=== PATIENT | male | born 1975 | race Caucasian/White ===

== ENCOUNTER 2021-11-28 09:05 | Outpatient (REF) | payer BC, SELFPAY ==
[2021-11-28 11:56] LABS: Binax Internal Control QC Valid; Binax Lot number: 9864; Binax Now Covid-19 Ag Negative (Negative)
== END 2021-11-28 09:06 | disposition home or self-care (01) ==
LOC: HO.LAB 09:05
PROVIDERS: Visit Provider Internal Medicine
DX: Z20.822 Contact with and (suspected) exposure to COVID-19 (principal)
CPT/HCPCS: 36415; C9803

== ENCOUNTER 2024-06-03 08:54 | Outpatient (AMB) | payer OTHER, SELFPAY ==
--- NOTE | 2024-06-03 08:58 | AM.OFFWIN_ITS ---
Intake Vital Signs 06/03/24 09:00 Height 5 ft 10 in Weight 188 lb 6 oz BMI 27.0 BP 124/72 Blood Pressure Location Lt brachial Position Sitting Pulse 64 Pulse Source Pulse Oximeter Pulse Oximetry (%) 99 Oxygen Delivery Method Room Air Intake Visit Reasons: Poison Chinyere Intake Note: Patient is here with poison chinyere rash since Saturday. Allergies No Known Allergies Allergy (Verified 06/03/24 09:01) Do you need a note to return to daycare/school/sports/work: No HPI Poison Chinyere HPI Details 49 y/o male presents today with complain ts of poison chinyere. He notes he washed down his arms with alcohol but poison chinyere seems to be extensive. Review of Systems Const Denies chills, Denies fatigue, Denies fever(s), Denies headache(s) and Denies weakness ENT Denies dizziness and Denies headache(s) Card Denies dyspnea Resp Denies cough, Denies dyspnea, Denies wheezing and Denies other (shortness of breath) Musc Denies numbness and Denies tingling Neuro Denies dizziness, Denies headache(s), Denies numbness, Denies tingling and Denies weakness Psych Denies anxiety and Denies depression Endo Denies fatigue Aller/Immun Denies wheezing Physical Exam Vital Signs: Last Vital Signs Pulse 64 06/03/24 09:00 BP 124/72 06/03/24 09:00 Pulse Ox 99 06/03/24 09:00 Oxygen Delivery Method Room Air 06/03/24 09:00 BMI result Body Mass Index 27.0 Const General: well developed; No acute distress Nutritional Appearance: well nourished Orientation/consciousness: patient oriented x3 HEENT Head: Yes normocephalic and Yes atraumatic Eyes General: appearance normal, both eyes and all related structures Pupils: Equal, round and reactive pupils present EOM: EOMs intact bilaterally Resp Effort & Inspection: normal respiratory effort Neuro General: patient oriented x3 and gait normal Cranial nerves: Yes Equal, round and reactive pupils present Psych Affect: normal affect Assessment & Plan Assessment & Plan (1) Poison chinyere: Code(s): L23.7 - Allergic contact dermatitis due to plants, except food Plan: Rather?extensive?coverage?of?poison?chinyere?rash?on?forearms?and?back?as?well?as?abd omen?and?chest No?involvement?of?neck?or?face Will?give?him?oral?prednisone?taper?and?also?betamethasone?ointment?which?he?can ?use?b.i.d. Also?advised?he?wash?all?clothing?tools?and?footwear. Medications: New betamethasone valerate 0.1% 1 appl topical BID PRN 60 grams 0RF skin irritation 14 days prednisone 4 tabs daily for 4 days, 3 tabs daily for 2 days, 2 tabs daily for 2 days, 1 tab daily for 2 days PO daily; 28 tabs 0RF 10 days Coding Level of Care Code New Pt Level 3 (48691) Diagnoses Poison chinyere L23.7
[2024-06-03 09:00] VITALS: BP 124/72; PULSE 64; O2SAT 99; BMI 27.0
== END 2024-06-03 09:27 | disposition home or self-care (01) ==
PROVIDERS: Visit Provider Family Medicine
DX: L23.7 Allergic contact dermatitis due to plants, except food (principal)
CPT/HCPCS: 99203